=== PATIENT | female | born 1975 | race Caucasian/White ===

== ENCOUNTER → 2023-09-17 10:08 | Outpatient (REF) | payer BC, SELFPAY | LOC: WDC 10:08 | PROVIDERS: ATTENDING PHYSICIAN Internal Medicine | DX: Z12.31 Encounter for screening mammogram for malignant neoplasm of breast (principal) | CPT/HCPCS: 77063; 77067 ==

== ENCOUNTER → 2024-09-21 07:58 | Outpatient (REF) | payer BC, SELFPAY | LOC: WDC 07:58 | PROVIDERS: ATTENDING PHYSICIAN Obstetrics & Gynecology; FAMILY PHYSICIAN Internal Medicine | DX: Z12.31 Encounter for screening mammogram for malignant neoplasm of breast (principal) | CPT/HCPCS: 77063; 77067 ==

== ENCOUNTER 2025-05-08 19:34 | Emergency (ER) | payer BC, SELFPAY ==
[2025-05-08 19:37] VITALS: BP 147/105
[2025-05-08 20:57] VITALS: BP 115/65; BMI 29.8
--- NOTE | 2025-05-08 21:04 | ED.GENMED ---
History of Present Illness
General
Chief Complaint: Swelling
Source: patient
Exam Limitations: none
Time Seen by Provider: 05/08/25 20:54
Nursing documentation reviewed up to this point in time: agreed with
History of Present Illness
History of Present Illness:
49-year-old female presents to the ER for evaluation of lower extremity swelling. She reports she has had lower extremity swelling for the past 2 weeks. She has also noticed some little discomfort behind her right knee. She is anxious about her
symptoms as this swelling is new. She denies any injury. She does sometimes have shortness of breath with sleep but was diagnosed with mild sleep apnea. This is not new. She denies any dyspnea on exertion. Denies any chest pain. Patient is
anxious about her symptoms. 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 She had a calcium score done by CAT scan which was 4.
Past History
Past History
ED Past Medical History: None
ED Past Surgical History: None
Social History
Tobacco: Non-smoker
Personal:
Living: with family
Family History
Family History: Negative Diabetes, Hypertension, Early CAD, Asthma or Cancer
Phy Exam
General Physical Exam
General Presentation: no apparent distress
General age: appears stated age
General Skin: warm and dry
General Habitus: normal
General Mental: alert
General Hydration: appears well hydrated
Cardiovascular Exam
Cardiovascular Exam: regular rate/rhythm, no murmur and normal peripheral pulses
Pulmonary Exam
Pulmonary Exam: lungs clear and no respiratory distress
Neurological Exam
Neurological Exam: alert and oriented x3
Musculoskeletal Exam
Musculoskeletal Exam: other ( b/l l/e strong pulses right calf with mild swelling /fullness no erythema no knee swelling or tenderness full flexion extension)
Skin Exam
Skin Exam: normal color and warm/dry
Psychiatric Exam
Psychiatric Exam: normal mood/affect
Scores
Heart Failure Risk
Heart Failure Risk Score: Not Applicable
Course
Orders/Labs/Results
Orders:
Orders
05/08/25 21:14
Venous Doppler Lwr Ext Bilat [US Periph Venous LOWER Ext [place]] Urgent
Comment:
Reason For Exam: b/l l/e swelling
05/08/25 21:15
Electrocardiogram (*1) Stat
Reason for Study: Other
Other Reason for Exam: chest pain
Cardiac Monitoring- Treatment ONCE
EKG- Treatment ONCE
05/08/25 21:21
Chest [CR Chest - 2 Views ] Urgent
Comment:
Reason For Exam: sob
05/08/25 21:25
Complete Blood Count/With Diff Urgent
Comprehensive Metabolic Panel Urgent
NT-proBNP Urgent
Abnormal Lab Results
05/08/25
21:25
Lymphocytes % 18.0 L %
(20.5-51.1)
BUN 25 H mg/dl
(7-17)
Glucose 110 H mg/dl
(70-99)
05/08/25 21:25
05/08/25 21:25
Vital Signs
Initial and Last Documented VS:
Initial Vital Signs
Temp Pulse Resp BP Pulse Ox
98.2 F 94 16 147/105 97
05/08/25 19:37 05/08/25 19:37 05/08/25 19:37 05/08/25 19:37 05/08/25 19:37
Last Documented Vital Signs
Temp Pulse Resp BP Pulse Ox
98.2 F 97 20 115/65 95
05/08/25 19:37 05/08/25 22:15 05/08/25 22:15 05/08/25 20:57 05/08/25 22:15
MDM/Problems Addressed
Differential Diagnosis Includes:
Not limited to DVT, lower extremity swelling
MDM/Problems Addressed:
Patient is well-appearing however anxious about her symptoms of lower extremity swelling. She has no documented cardiac disease however has seen cardiology for hyperlipidemia and is managed on a statin. Patient denies any dyspnea on exertion no
chest pain. I did do labs and chest x-ray based on patient's anxiety as well as her lower extremity swelling however no acute concerning findings . Chest x-ray is negative patient has low BNP no chest pain no EKG findings. Patient has a ruptured
Lynne's cyst on the right with fluid extending into the inferior posterior calf likely the cause of patient's symptoms no obvious swelling noted to the left calf. Stable for discharge home with outpatient follow-up family doctor and Ortho as needed
Chronic conditions affecting care:
high cholesterol
*Radiology
Radiology exam reviewed: preliminary read by ED provider and radiology read reviewed
*Pulse Oximetry
SaO2: 98
Oxygen Mode of Delivery: Room air
Patient hypoxic: no
*EKG
Interpretation: normal
Comparison EKG: no comparison EKG present
Heart Rate: 96
Rate: normal
Rhythm: sinus
Ischemia: no ischemia
*Critical Care Note
Total Time (30-74mins, 75-104mins- exclusive of procedures): Not Applicable
ED Attending Note
-
Portions of this chart may have been created with voice recognition software.� Occasional wrong word or��sound alike� substitutions may have occurred due to the inherent limitations of voice recognition software.
Discharge Plan
Departure
Patient Disposition: Home (Routine Discharge)
Date of Disposition: 05/08/25
Time of Disposition: 22:57
Patient with high blood pressure during this ER visit?: Yes
Condition: Fair
Covid-19: Not Applicable
Discharge Problem:
Lynne cyst
Instructions: BLOOD PRESSURE
Prescriptions:
No Action
ibuprofen [Advil Liqui-Gel] 200 MG capsule
2 cap PO PRN (Reason: as needed)
dexlansoprazole [Dexilant] 60 MG capsule,biphase delayed releas
60 mg PO HS
Sudafed
2 tab PO PRN (Reason: as needed)
lorazepam [Ativan] 1 MG tablet
1 mg PO Q8HPRN PRN (Reason: anxiety) Qty: 10 0RF
Referrals:
Christo Giron MD [Family Provider, Internal Medicine]
Philippe Carroll MD [Active, Orthopedics]
Activity Restrictions/Additional Instructions:
As discussed please follow-up with your family doctor in the next several days for reevaluation of your symptoms. Keep leg elevated is much as possible may take Advil as needed. Follow-up with orthopedics as needed as discussed you were dehydrated
on your blood work .please increase water intake.
Return if any worsening of symptoms
Interventions
Interventions:
*Risk Screen - Suicide Last Done: 05/08/25 19:37
*General Assessment Last Done: 05/08/25 20:59
*Neglect/Abuse Screening Last Done: 05/08/25 19:37
*ED- Fall Risk Assessment Last Done: 05/08/25 20:59
*ED COVID-19 Vaccine History Last Done: 05/08/25 20:59
*ED Influenza Vaccine History Last Done: 05/08/25 20:59
ED- Cardiac Assessment Last Done: 05/08/25 20:55
ED- Pulmonary Assessment Last Done: 05/08/25 20:55
ED-Skin Assessment Last Done: 05/08/25 20:55
Discharge Date and Time
Print Language: GEORGIAN
[2025-05-08 21:33] LABS: Hematocrit 42.9 % (37.0-47.0); Hemoglobin 14.9 g/dL (12.0-16.0); Mean Corp Hgb Conc. 34.7 g/dL (33.0-37.0); Mean Corpuscular Volume 88.6 fL (81.0-99.0); Nucleated Red Blood Cells % 0 %; Platelet Count 225 10^3/uL (130-400); Red Cell Dist. Width 12.0 % (11.5-14.5)
[2025-05-08 21:48] LABS: ALT (SGPT) 34 U/L (0-35); AST (SGOT) 35 U/L (14-36); Albumin 5.0 g/dl (3.5-5.0); Alkaline Phosphatase 101 U/L (38-126); Blood Urea Nitrogen 25 mg/dl (7-17); Calcium 9.7 mg/dl (8.4-10.2); Carbon Dioxide 29 mmol/L (22-30); Chloride 101 mmol/L (98-107); Estimated Creatinine Clearance 75 ml/min; Glucose 110 mg/dl (70-99); Potassium 4.0 mmol/L (3.5-5.1); Sodium 138 mmol/L (135-145); Total Protein 8.2 g/dl (6.3-8.2); eGFR > 60.00
[2025-05-08 23:03] VITALS: BP 116/74
== END 2025-05-08 23:07 | disposition home or self-care (01) ==
LOC: EMR 19:34
PROVIDERS: Nurse Practitioner; EMERGENCY PHYSICIAN Emergency Medicine; FAMILY PHYSICIAN Internal Medicine
DX: M66.0 Rupture of popliteal cyst (principal); R03.0 Elevated blood-pressure reading, without diagnosis of hypertension; E78.00 Pure hypercholesterolemia, unspecified; G47.30 Sleep apnea, unspecified
CPT/HCPCS: 99284; 71046; 80053; 83880; 85025; 93005; 93970